=== PATIENT | female | born 1995 | race Caucasian/White ===

== ENCOUNTER 2019-06-30 18:25 | Observation (INO) | payer OTHER, SELFPAY ==
[2019-06-30 18:40] VITALS: TEMP 37.4
[2019-06-30 18:42] VITALS: BP 122/74; PULSE 85
[2019-06-30 19:12] LABS: Add Urine Microscopic? NO; Appearance Urine Clear (Clear); Bilirubin Urine Negative (Negative); Blood Urine Negative (Negative); Color Urine Straw (Yellow); Glucose Urine UA Negative (Negative); Ketones Urine Negative (Negative); Leukocyte Esterase Ur Negative LEU/UL (Negative); Nitrate Urine Negative (Negative); Protein Urine Negative (Negative); Urobilinogen Urine Negative mg/dL (<2.0)
[2019-06-30] MEDS: CYCLOBENZAPRINE HCL 10 MG TABLET PO (19:39)
[2019-06-30 19:50] VITALS: TEMP 37.3
--- NOTE | 2019-06-30 20:11 | PC.NURSE ---
Addendum entered by Latanya Rock RN 06/30/19 20:18: 1840 Original Note: Pt here stating she has been having pain and pressure on her lower abdomen for a week. States it worsened this evening. Rates pain 7-8 earlier in the week and 9-10 now. Pt states legs sometimes go numb with pain. States when she straightens her legs the pain comes and goes, when her legs are bent either sitting up or on her side with her legs up she feels better and does not have the pain. When Pt started having the pain abdomen palpated and was soft. Pt stated it was on her lower left side at that time. Pt points very low on her side. States it is slightly more tender to the touch. States it is sometimes on the right side and sometimes on the left side. When laying on her side pt is comfortable. States she is unsure when her last bowel movement was that it may have been a day or two. Family states pt has not been eating much or drinking much water. Denies vomiting, diarrhea, or fever.
--- NOTE | 2019-07-14 08:00 | PM.OBTRLD ---
OB - Triage/Final Diagnosis Evaluation Laboratory results: Laboratory Tests 06/30/19 18:59 Urine Color Straw Urine Appearance Clear Urine pH 7.0 Ur Specific [place] 1.010 Urine Protein Negative Urine Glucose (UA) Negative Urine Ketones Negative Ur Blood (Man) Negative Urine Nitrate Negative Urine Bilirubin Negative Urine Urobilinogen Negative Leukocyte Esterase Rfl Negative Final Diagnosis (1) Abdominal pain: Code(s): R10.9 - Unspecified abdominal pain Status: Acute
== END 2019-06-30 20:00 | disposition home or self-care (01) ==
PROVIDERS: Advanced Practice Midwife; Admitting Provider Obstetrics & Gynecology; PCP Nurse Practitioner Family; Visit Provider Obstetrics & Gynecology
DX: O26.892 Other specified pregnancy related conditions, second trimester (principal); R10.9 Unspecified abdominal pain; Z3A.15 15 weeks gestation of pregnancy
CPT/HCPCS: 81003; A9270; G0378; G0379

== ENCOUNTER 2019-09-18 17:18 | Observation (INO) | payer OTHER, SELFPAY ==
[2019-09-18 17:34] VITALS: BP 115/66; PULSE 90
[2019-09-18 17:43] VITALS: BMI 41.2
[2019-09-18 17:45] VITALS: BP 109/57; PULSE 84
--- NOTE | 2019-09-18 17:45 | OBADM ---
This patient, Isabelle Coleman, admitted to the OB room 116 at 1718 per wheelchair for observation for c/o lower abdominal pain and urge to push. Patient/family oriented to hospital policies and general routines including ID bracelet, bed and alarms, visiting hours, pain management, procedures, bathroom and other care routines, personal items, smoking policy, room service/diet, and visiting hours. Patient/Family are encouraged to report perceived risks to care and to ask questions if they do not understand what they are told or what they should do.
[2019-09-18 18:00] VITALS: BP 110/60; PULSE 81; TEMP 36.6
[2019-09-18 18:17] VITALS: BP 105/62; PULSE 95
[2019-09-18 18:25] LABS: Add Urine Microscopic? YES; Amorphous Sediment Urine Few; Appearance Urine Clear (Clear); Bacteria Urine Trace /hpf; Bilirubin Urine Negative (Negative); Blood Urine Negative (Negative); Color Urine Yellow (Yellow); Glucose Urine UA Negative (Negative); Ketones Urine 1+ mg/dL (Negative); Leukocyte Esterase Ur Negative LEU/UL (Negative); Mucus Urine Few /lpf; Nitrate Urine Negative (Negative); Protein Urine Negative (Negative); RBC Urine 0-2 /hpf (0-2); Specific Grav Ur 1.015 (1.001-1.035); Squamous Epithelial Cell Urine Occasional /hpf (Few); Urobilinogen Urine Negative mg/dL (<2.0)
[2019-09-18 18:30] VITALS: BP 105/52; PULSE 82
[2019-09-18 18:45] VITALS: BP 104/63; PULSE 74
--- NOTE | 2019-09-23 07:35 | P.PNOB_ITS ---
OB - Triage/Final Diagnosis Evaluation Laboratory results: Laboratory Tests 09/18/19 18:11 Urine Color Yellow Urine Appearance Clear Urine pH 6.0 Ur Specific [place] 1.015 Urine Protein Negative Urine Glucose (UA) Negative Urine Ketones 1+ H Ur Blood (Man) Negative Urine Nitrate Negative Urine Bilirubin Negative Urine Urobilinogen Negative Leukocyte Esterase Rfl Negative Urine RBC 0-2 Urine WBC 4-6 H Ur Squamous Epith Cells Occasional Amorphous Sediment Few H Urine Bacteria Trace Urine Mucus Few H Final Diagnosis (1) Abdominal pain affecting : Code(s): O26.899 - Other specified related conditions, unspecified trimester; R10.9 - Unspecified abdominal pain Status: Acute
== END 2019-09-18 19:12 | disposition home or self-care (01) ==
PROVIDERS: Admitting Provider Obstetrics & Gynecology; PCP Nurse Practitioner Family; Visit Provider Obstetrics & Gynecology
DX: O26.892 Other specified pregnancy related conditions, second trimester (principal); R10.9 Unspecified abdominal pain; Z3A.27 27 weeks gestation of pregnancy
CPT/HCPCS: 81001; G0378; G0379

== ENCOUNTER 2019-10-10 20:47 | Observation (INO) | payer OTHER, SELFPAY ==
--- NOTE | 2019-10-10 20:47 | OBADM ---
This patient, Isabelle Coleman, admitted to the OB room OB Post 117 for observation. Patient/family oriented to hospital policies and general routines including ID bracelet, bed and alarms, visiting hours, pain management, procedures, bathroom and other care routines, personal items, smoking policy, room service/diet, and visiting hours. Patient/Family are encouraged to report perceived risks to care and to ask questions if they do not understand what they are told or what they should do.
[2019-10-10 21:01] VITALS: BP 111/70; PULSE 105
[2019-10-10 21:55] VITALS: BMI 40.8
[2019-10-10 22:00] VITALS: BP 113/63; PULSE 85
--- NOTE | 2019-10-16 07:25 | PM.OBTRLD ---
OB - Triage/Final Diagnosis Final Diagnosis (1) contractions: Code(s): O47.9 - False labor, unspecified Status: Acute
== END 2019-10-10 22:25 | disposition home or self-care (01) ==
PROVIDERS: Admitting Provider Obstetrics & Gynecology; PCP Nurse Practitioner Family; Visit Provider Obstetrics & Gynecology
DX: O47.03 False labor before 37 completed weeks of gestation, third trimester (principal); Z3A.30 30 weeks gestation of pregnancy
CPT/HCPCS: G0378; G0379

== ENCOUNTER 2019-10-21 19:32 | Outpatient (RCR) | payer OTHER, SELFPAY ==
[2019-10-03 12:40] VITALS: BP 123/71; PULSE 89
[2019-10-21 20:00] VITALS: BP 99/47; PULSE 91
== END 2019-11-27 08:40 | disposition home or self-care (01) ==
LOC: ANHOBOP 19:32
PROVIDERS: PCP Nurse Practitioner Family; Visit Provider Obstetrics & Gynecology
DX: O36.8130 Decreased fetal movements, third trimester, not applicable or unspecified (principal); Z3A.29 29 weeks gestation of pregnancy; Z3A.31 31 weeks gestation of pregnancy
CPT/HCPCS: 59025

== ENCOUNTER 2019-11-21 15:07 | Inpatient (IN) | payer OTHER, SELFPAY ==
[2019-11-21] VITALS (80 sets, daily range): BP systolic 102–141; BP diastolic 42–87; PULSE 48–113; RESP 16–18; TEMP 36.1–36.9; O2SAT 93–100; BMI 41.6
--- NOTE | 2019-11-21 15:19 | LDADM ---
This patient, Isabelle Coleman, was admitted to Labor/Delivery/Recovery 120 on 11/21/19 at 15:07. Plans for labor, pain management and were discussed with patient. Patient/family oriented to hospital policies and general routines including ID bracelet, bed and alarms, visiting hours, pain management, procedures, bathroom and other care routines, personal items, smoking policy, room service/diet and guest tray routines, security routines, and visiting hours. Patient/Family are encouraged to report perceived risks to care and to ask questions if they do not understand what they are told or what they should do. See OBIX for further documentation.
--- NOTE | 2019-11-21 15:31 | WPDANESEPPF ---
Anes - Initial Pre Proc Eval Procedure: Operation Date: 11/27/19 09:00 Proposed Procedures p Repeat Section wiht Bilateral Tubal Cautery - Janis Nuno MD Date/Time: 11/21/19 15:31 Surgeon: Janis Nuno MD Pre Op Diagnosis: C/S Patient Data Age: 24 Gender: F Height: 5 ft 1 in Weight: 100 kg Allergies Allergy/AdvReac Type Severity Reaction Status Date / Time No Known Allergies Allergy Verified 09/18/19 17:42 Home Medications Medication Instructions Recorded Confirmed Type Flovent HFA 2 puff INHALATION Q2-4H PRN 09/18/19 09/18/19 History albuterol sulfate 2 puff INHALATION QID PRN 09/18/19 09/18/19 History metoclopramide HCl 10 mg PO Q6H PRN 09/18/19 09/18/19 History pantoprazole 40 mg PO DAILY 09/18/19 09/18/19 History Patient hx anesthesia problems: none Family hx anesthesia problems: none PMFSH Past Medical History Medical History Asthma GERD (gastroesophageal reflux disease) History of ovarian cyst Surgical History Surgical History History of removal of ovarian cyst Family History Family History Mother Diabetes mellitus Son Aniridia Social History Social History Smoking status: Never smoker Second hand tobacco smoke exposure: Yes Substance use: never Gender identity (if verbalized by the patient): Female Spiritual care concerns: No Anes - Eval Final PreProcedure Day of Procedure 11/21/19 15:31 Patient weight: morbidly obese Heart: regular rate and rhythm Lungs: clear to auscultation Airway: Mallampati scale class II Neurological: alert and oriented Last oral intake: >/= 8 hours ASA classification: III Emergent: yes Anesthetic plan: proceed Anesthesia type and monitoring: regional spinal and standard monitoring Informed Consent: The patient's anesthetic plan and its attendant risks and benefits were discussed with the patient/family/POA. Questions were solicited and answers provided to the satisfaction of the patient/family/POA.
[2019-11-21 15:33] LABS: Basophils Percent Auto 0.2 % (0.2-1.2); Eosinophils Absolute Auto 0.1 K/mm3 (0-0.3); Eosinophils Percent Auto 0.8 % (0-4.4); Hematocrit 33.6 % (37.0-47.0); Hemoglobin 11.6 g/dL (12.0-15.0); Immature Granulocyte Absolute 0.06 K/mm3 (0.00-0.031); Immature Granulocyte Percent A 0.6 % (0-0.5); Mean Corpuscular HGB Conc 34.5 g/dl (32-36); Mean Corpuscular Hemoglobin 32.3 pg (26-34); Mean Corpuscular Volume 93.6 fl (80-100); Mean Platelet Volume 9.7 fl (7.4-10.4); Monocytes Absolute Auto 0.9 K/mm3 (0.1-0.6); Monocytes Percent Auto 9.4 % (2.6-8.5); Neutrophils Absolute Auto 6.3 K/mm3 (1.3-6.7); Platelet Count Result 217 k/mm3 (150-375); Red Blood Count 3.59 M/mm3 (4.2-5.4); Red Cell Distribution Width 11.9 % (11.5-14.5); White Blood Count 9.6 K/mm3 (4.5-10.0)
--- NOTE | 2019-11-21 15:41 | WPDOBADMIT ---
Obstetrics - Admit Note Admission Note: record reviewed. No pertinent additions to the history and/or any subsequent changes in the physical findings that are not consistent with the expected course of the were found. Additions to the history and/or subsequent changes in the physical findings follow. at 36+1 with d-di twins was found to have new onset IUGR and elevated dopplers of both babies at office visit today. She agrees to proceed with emergent C/S due to u/S findings and baby A is breech and B transverse. GBS negative
--- NOTE | 2019-11-21 17:00 | PM.OP ---
Procedure Note - Brief Procedure Note - Brief Date of procedure: 11/21/19 Pre-op diagnosis: C/S Di-di twinse with IUGR and abnormal dopplers of both, malpresentation of both, desires sterilization Post-op diagnosis: same Procedure performed: Primary LTCS + BTL Anesthesia: spinal Surgeon: Janis Nuno MD Estimated blood loss (mL): 645 Drains: Yes (Matt) Packing: No Pathology: yes Complications: No immediate complications Condition: stable Disposition: floor Findings: Baby A- female, Apgars 7/8, 4# 11oz, wanda breech; Baby B - female, Apgars 7/8, 4# 6oz, transverse (delivered as wanda breech); normal uters, tubes, ovaries
--- NOTE | 2019-11-21 17:36 | HP_ITS ---
DATE OF SERVICE: 11/21/2019 HISTORY OF PRESENT ILLNESS: The patient is a 25-year-old G2, P1-0-0-1 at 36 weeks and 1 day with dichorionic diamniotic twin gestation, who was in the office today for a routine visit and ultrasound, and both of her fetuses have developed IUGR with increased Dopplers of the umbilical artery, and since her last growth ultrasound, baby A is breech and baby B is transversed. So she was recommended to proceed with emergent . She is feeling normal movement and occasional contractions. No vaginal bleeding and no leakage of fluid. MEDICAL HISTORY: Acid reflux and asthma. CURRENT MEDICATIONS: Flovent, pantoprazole, and vitamin. ALLERGIES: SHE IS ALLERGIC TO HYDROCODONE. SURGICAL HISTORY: Diagnostic laparoscopy with right ovarian cystectomy, D and C hysteroscopy, and endometrial polypectomy. OB HISTORY: She had 1 full-term vaginal delivery complicated by gestational hypertension. SOCIAL HISTORY: She smokes about 5 cigarettes a day. Denies alcohol or drug use. C[employer] LAB[employer]ER HISTORY: Negative for abnormal Pap or STD. REVIEW OF SYSTEMS: Negative. PHYSICAL EXAMINATION: VITAL SIGNS: Her weight is 225, blood pressure 109/73. GENERAL: No apparent distress. HEART: Regular rate and rhythm. LUNGS: Clear to auscultation. ABDOMEN: Gravid, soft, nontender, nondistended. EXTREMITIES: Nontender with 2+ edema bilaterally. IMAGING DATA: Ultrasound today shows baby A in breech presentation on maternal left, weighing 4 pounds 9 ounces, which is 2, the 2nd percentile and umbilical artery Doppler of 3.4. Baby B has an estimated weight of 4-pound 7-ounce which is 1.3 percentile. This baby is in transverse lie with the head to maternal right and the Doppler of that umbilical artery is between 3.1 and 4.0. ASSESSMENT/PLAN: 1. G2, P1, at 36 weeks and 1 day with dichorionic diamniotic twins with new onset of intrauterine growth restriction of both fetuses and both also have elevated umbilical artery Dopplers. This is an indication for delivery. She agreed to proceed straight to Labor and delivery for due to presentation of baby A. 2. Desire sterilization. She had expressed the desire for sterilization throughout her and did sign consent form on August 28, 2019, so we will plan to tie her tubes along with her . 3. status is guarded and an indication for delivery. 4. Group B streptococcus is negative. D I MT: Radha
[2019-11-21] MEDS: MORPHINE SULFATE 2 MG/ML INJ 3 MG IV PUSH (17:41)
[2019-11-21] MEDS: OXYTOCIN 30 UNITS/NS 500 ML 30 UNITS/500 ML BAG 125 UNITS IV CONT (17:42)
--- NOTE | 2019-11-21 17:56 | OP_ITS ---
DATE OF PROCEDURE: 11/21/2019 PREOPERATIVE DIAGNOSIS: Intrauterine diamniotic dichorionic twin with IUGR of both fetuses, abnormal umbilical artery Dopplers of both fetuses, malpresentation of both fetuses and desires sterilization. POSTOPERATIVE DIAGNOSES: Intrauterine diamniotic dichorionic twin with IUGR of both fetuses, abnormal umbilical artery Dopplers of both fetuses, malpresentation of both fetuses and desires sterilization. PROCEDURE PERFORMED: Primary low-transverse section and bilateral tubal ligation. ANESTHESIA: Spinal. ESTIMATED BLOOD LOSS: 645 mL. COMPLICATIONS: None. FINDINGS: Baby A, wanda breech presentation female. Apgars 7 and 8. Weight 4 pounds 11 ounces. Baby B, female transverse presentation initially, but delivered as wanda breech. Apgars 7 and 8. Weight 4 pounds 6 ounces. Normal uterus, tubes, and ovaries. INDICATIONS: A 24-year-old, G2, P1-0-0-1 at 36 weeks and 1 day gestation, came to the office for routine OB visit and ultrasound, and was found to have new onset of IUGR as well as abnormal Dopplers of both fetuses and still malpresentation of both, so she was recommended to proceed with urgent delivery via due to malpresentation. She had expressed a desire throughout her as well as the continued desire today for sterilization and had signed consent for tubal ligation on August 28, 2019. DESCRIPTION OF PROCEDURE: She was taken to the operating room where spinal anesthesia was obtained and found to be adequate. She was prepared and draped in the normal sterile fashion in the dorsal supine position with a leftward tilt. A Pfannenstiel skin incision was made with a scalpel and extended to the underlying layer of fascia with the scalpel. The fascia was incised in the midline with a scalpel and extended laterally with the Hill scissors. The underlying rectus muscles were dissected off bluntly and sharply. The peritoneum was entered sharply and extended inferiorly and superiorly with good visualization of the bladder. The bladder blade was inserted. The lower uterine segment was incised in a transverse fashion with the scalpel. The incision was digitally stretched in the cephalocaudad direction. Baby A's membranes were ruptured with clear fluid noted. The hips were at the incision. Gentle traction was placed on the hips until the level of the shoulders were delivered. The left arm, which was anterior was flexed across the chest and brought easily through the incision. The infant was turned 180 degrees. The other arm was then flexed and brought easily through the incision. The head was flexed and delivered easily. The cord was clamped x2 and cut. The infant was passed to the waiting nurse. Baby B's membranes were still intact, so palpation was done to see what parts were facing where and baby was transverse, but the hips were brought down further toward the incision, and then the membranes were ruptured with clear fluid noted. The same maneuvers were used to deliver baby B. The cord was clamped x2 and cut. The infant was passed to the awaiting nurse. Cord gas and cord blood were obtained from both placentas. The placentas were then delivered by gentle traction on the cord. The uterus was exteriorized and cleared of all clots and debris. The uterine incision was closed using 0 Vicryl in a running locked fashion. Attention was then turned to the right fallopian tube, which was grasped with a Burton clamp. A defect was made in the mesosalpinx with the Bovie cautery. Two free ties of 0 plain gut were placed around the fallopian tube and the intervening segment of tube was excised. The same procedure was performed on the left fallopian tube. The uterine incision was reinspected and found to be hemo
[2019-11-22 03:48] VITALS: BP 93/55; PULSE 62; RESP 20; TEMP 36.8; O2SAT 98
[2019-11-22 04:32] VITALS: BP 96/58
[2019-11-22 04:49] LABS: Basophils Absolute Auto 0.1 K/mm3 (0.0-0.1); Basophils Percent Auto 0.4 % (0.2-1.2); Eosinophils Absolute Auto 0.1 K/mm3 (0-0.3); Eosinophils Percent Auto 0.7 % (0-4.4); Hematocrit 28.4 % (37.0-47.0); Hemoglobin 9.7 g/dL (12.0-15.0); Immature Granulocyte Absolute 0.07 K/mm3 (0.00-0.031); Immature Granulocyte Percent A 0.5 % (0-0.5); Lymphocytes Absolute Auto 2.56 K/mm3 (0.9-3.2); Lymphocytes Percent Auto 19.8 % (18.3-44.2); Mean Corpuscular HGB Conc 34.2 g/dl (32-36); Mean Corpuscular Hemoglobin 32.3 pg (26-34); Mean Corpuscular Volume 94.7 fl (80-100); Mean Platelet Volume 10.1 fl (7.4-10.4); Monocytes Absolute Auto 1.3 K/mm3 (0.1-0.6); Monocytes Percent Auto 10.4 % (2.6-8.5); Neutrophils Absolute Auto 8.8 K/mm3 (1.3-6.7); Neutrophils Percent Auto 68.2 % (45.5-73.1); Platelet Count Result 199 k/mm3 (150-375); Red Cell Distribution Width 11.9 % (11.5-14.5); White Blood Count 12.9 K/mm3 (4.5-10.0)
[2019-11-22 08:00] VITALS: BP 121/68; PULSE 65; RESP 18; TEMP 36.9; O2SAT 95
--- NOTE | 2019-11-22 08:10 | WPDANLDPN2 ---
Anes-Prog Note L&D Date/Time: 11/22/19 08:10 Comfortable throughout: section Neuraxial method: spinal Epidural/Spinal procedure site: clean & non-tender Neuro status: Neuro function grossly intact. Cardiovascular status: normal Respiratory status: normal Airway patency: baseline Mental status: baseline Post-Op hydration status: normal Vital Signs: Last Vital Signs Temp 36.8 C 11/22/19 03:48 Pulse 62 11/22/19 03:48 Resp 20 11/22/19 03:48 BP 96/58 L 11/22/19 04:32 Pulse Ox 98 11/22/19 03:48 I/O: Intake & Output 11/21/19 11/22/19 11/22/19 23:59 07:59 15:59 Intake Total 750 Output Total 645 1500 Balance -645 -750 Post-procedural complaints: none Patient feedback: Patient satisfied with anesthetic care.
--- NOTE | 2019-11-22 08:11 | WPDANLDNPN2 ---
Anes-Prog Note L&D-Neuraxial Date/Time: 11/22/19 08:11 Neuraxial medications: intrathecal PF morphine Opiod-related complaints: none Patient feedback: Patient satisfied with post-operative pain management.
[2019-11-22] MEDS: POLYSACCHARIDE IRON COMPLEX 150 MG CAPSULE PO ×2 (08:53→17:27)
[2019-11-22] MEDS: DOCUSATE SODIUM 100 MG CAPSULE PO ×2 (08:53→17:27)
[2019-11-22] MEDS: MULTIVIT/MIN/PREN/FOL AC/IRON TABLET 1 TAB PO (08:53)
[2019-11-22] MEDS: PANTOPRAZOLE 40 MG TABLET PO (09:28)
[2019-11-22] MEDS: IBUPROFEN 600 MG TABLET PO ×3 (11:50→23:29)
[2019-11-22 12:00] VITALS: BP 112/70; PULSE 66; RESP 16; TEMP 37.1; O2SAT 97
--- NOTE | 2019-11-22 12:04 | PM.OBPNVD ---
OB - PN: Subj Subjective Date/time seen: 11/22/19 12:04 Patient comments: no complaints, pain well controlled, tolerating diet and flatus present OB - PN: Obj Data Labs CBC & Chem 7: 11/22/19 05:11 Labs: Laboratory Results - last 24 hr 11/21/19 11/21/19 11/22/19 15:27 15:27 05:11 WBC 9.6 12.9 H RBC 3.59 L 3.00 L Hgb 11.6 L 9.7 L Hct 33.6 L 28.4 L MCV 93.6 94.7 MCH 32.3 32.3 MCHC 34.5 34.2 RDW 11.9 11.9 Plt Count 217 199 MPV 9.7 10.1 Immature Gran % (Auto) 0.6 H 0.5 Neut % (Auto) 66.0 68.2 Lymph % (Auto) 23.0 19.8 [place] % (Auto) 9.4 H 10.4 H Eos % (Auto) 0.8 0.7 Baso % (Auto) 0.2 0.4 Lymph # (Auto) 2.20 2.56 [place] # (Auto) 0.9 H 1.3 H Eos # (Auto) 0.1 0.1 Baso # (Auto) 0.0 0.1 Abs Immat Gran (auto) 0.06 H 0.07 H Absolute Neuts (auto) 6.3 8.8 H Absolute Nucleated RBC 0.0 0.0 Nucleated RBC % 0.0 0.0 Blood Type A Positive Antibody Screen Negative OB - PN A/P Plan day: 1 Comments: Post Op LTCS - no problems, routine recovery Time Spent With Patient Time: Total time spent is greater than 50% in coordination of care (as documented) at patient's floor/unit and/or counseling patient: Exam Const: General: cooperative, healthy appearing, comfortable and no acute distress Resp: Auscultation: no crackles, no rales, no rhonchi and no wheezes Cardio: Rhythm: regular rhythm Heart sounds: no click and no murmurs GI: Inspection: non-distended Auscultation: normal bowel sounds Extrem: General: normal to inspection, no pedal edema and no calf tenderness
--- NOTE | 2019-11-22 12:55 | PC.NURSE ---
Pt left on her 4-6 hour pass to visit infants at [facility].
[2019-11-22 16:57] VITALS: BP 116/73; PULSE 81; RESP 16; TEMP 36.9; O2SAT 97
--- NOTE | 2019-11-22 17:47 | PC.NURSE ---
Returned from pass at 0489
[2019-11-22 18:31] VITALS: BP 102/52; PULSE 76; RESP 16; TEMP 36.6; O2SAT 98
[2019-11-23] MEDS: IBUPROFEN 600 MG TABLET PO ×2 (05:00→13:41)
[2019-11-23] MEDS: DOCUSATE SODIUM 100 MG CAPSULE PO (08:53)
[2019-11-23] MEDS: MULTIVIT/MIN/PREN/FOL AC/IRON TABLET 1 TAB PO (08:53)
[2019-11-23] MEDS: PANTOPRAZOLE 40 MG TABLET PO (08:53)
[2019-11-23] MEDS: POLYSACCHARIDE IRON COMPLEX 150 MG CAPSULE PO (08:53)
[2019-11-23 08:55] VITALS: BP 107/59; PULSE 68; RESP 16; TEMP 36.9; O2SAT 99
--- NOTE | 2019-11-23 12:49 | PM.OBPNVD ---
OB - PN: Subj Subjective Date/time seen: 11/23/19 12:49 Patient comments: no complaints, pain well controlled, incisional pain, tolerating diet and flatus present OB - PN: Obj Data Labs CBC & Chem 7: 11/22/19 05:11 OB - PN A/P Plan day: 2 Plan: routine care Comments: POD#2 LTCS - no problems, patient wants D/C, Time Spent With Patient Time: Total time spent is greater than 50% in coordination of care (as documented) at patient's floor/unit and/or counseling patient: Exam Const: General: comfortable, no acute distress and alert Resp: Effort & Inspection: normal respiratory effort Auscultation: no crackles, no rales and no rhonchi Cardio: Rate: regular rate Heart sounds: no click, no murmurs and no rubs GI: Inspection: non-distended GI Palp: No Tenderness to palpation present (GI) Auscultation: normal bowel sounds Other: Incision - CDI Extrem: General: normal to inspection, no pedal edema and no calf tenderness
--- NOTE | 2019-11-23 12:52 | PM.OBDSVD ---
DS: Discharge Diagnosis Discharge Diagnosis (1) Twin delivery by : Code(s): O30.009 - Twin , unspecified number of placenta and unspecified number of amniotic sacs, unspecified trimester Status: Acute (2) IUGR (intrauterine growth restriction): Status: Acute OB - DS: Summary OB Procedures : NST, Ultrasound and Other (twin gestation mamagement) OB Procedures Intrapartum: OB Procedures: : P.P. tubal ligation Peripartum Data Delivery Method: Section Procedures: Procedures Operation Date: 11/21/19 15:30 Actual Procedures Side Surgeon p Section Janis Nuno MD Operation Date: 11/27/19 09:00 <No data on this case meets the specified criteria> complications: none Status at Discharge Functional status at discharge: independent ambulation Time Spent with Patient Time attestation: Total time spent providing and/or coordinating discharge services: Time spent: Less than 30 minutes DS: Data Data Completed and Pending Pending studies at discharge: Pending at discharge 11/21/19 16:06 Surgical [PTH] Routine 11/21/19 16:15 Surgical [PTH] Routine Discharge Plan Discharge Discharging Clinician: Whitney Cm Patient Disposition: Home, Self-Care Activity: pelvic rest Diet: regular Wound Care Instructions: follow printed instructions Patient Instructions: Antibiotic Form Stand Alone Forms: General Discharge Information Follow-up/Referrals: Whitney Cm MD [Physician] - Discharge Medications: New hydrocodone-acetaminophen 5-325 mg tablet 1 - 2 tablet PO Q4H PRN (Reason: pain) Qty: 25 RF: 0 Continued pantoprazole 40 mg tablet,delayed release (DR/EC) 40 mg PO DAILY RF: 0 albuterol sulfate 90 mcg/actuation Hfa Aerosol Inhaler 2 puff INHALATION QID PRN (Reason: Dyspnea) RF: 0 Flovent HFA 110 mcg/actuation HFA aerosol inhaler 2 puff INHALATION Q2-4H PRN (Reason: Dyspnea) RF: 0 metoclopramide HCl 10 mg tablet 10 mg PO Q6H PRN (Reason: Nausea) RF: 0 Date of admission: 11/21/19 15:07 Primary Care Provider: DESMOND,SAMSON Admitting Provider: Janis Nuno Attending physician on admission: Janis Nuno
[2019-11-24 11:34] LABS: Rapid Plasma Reagin Non-Reactive (NonReactive)
[2019-11-25 07:45] VITALS: BP 112/80; PULSE 68; RESP 20; TEMP 37; O2SAT 98
== END 2019-11-23 14:36 | disposition home or self-care (01) | DRG 540 ==
LOC: ANHOB2 20:57 → ANHLDR 11-26 11:18 → ANHOB2 11-26 11:18
PROVIDERS: Admitting Provider Obstetrics & Gynecology; PCP Nurse Practitioner Family; Visit Provider Obstetrics & Gynecology
PROC: 10D00Z1 Extraction of Products of Conception, Low, Open Approach (ICD-10-PCS; CPT 59514; principal; 2019-11-21 15:30)
DX: O30.043 Twin pregnancy, dichorionic/diamniotic, third trimester (principal); O36.5931 Maternal care for other known or suspected poor fetal growth, third trimester, fetus 1; O36.5932 Maternal care for other known or suspected poor fetal growth, third trimester, fetus 2; O32.1XX1 Maternal care for breech presentation, fetus 1; O32.2XX2 Maternal care for transverse and oblique lie, fetus 2; O28.3 Abnormal ultrasonic finding on antenatal screening of mother; O99.214 Obesity complicating childbirth; E66.01 Morbid (severe) obesity due to excess calories; Z3A.36 36 weeks gestation of pregnancy; Z37.2 Twins, both liveborn; O99.334 Smoking (tobacco) complicating childbirth; F17.210 Nicotine dependence, cigarettes, uncomplicated; Z30.2 Encounter for sterilization
CPT/HCPCS: 36415; 85025; 86592; 86850; 86900; 86901; 88302; 88307; A9270; J0131; J1200; J2270; J2274; J2370; J2405; J2590; J7120

== ENCOUNTER 2020-05-17 19:00 | Emergency (ER) | payer OTHER, SELFPAY ==
--- NOTE | ~2020-05-17 | XR_ITS ---
EXAMINATION: XR foot RT min 3V DATE: 05/17/2020 19:27 INDICATION: Medial right foot pain TECHNIQUE: Dorsoplantar, two oblique and lateral views of the right foot were obtained. COMPARISON: 03/12/2018 FINDINGS: Bone alignment is normal. Again noted is a normal type II os naviculare. No fracture. Mild osteoarthr itis at the first metatarsophalangeal joint. IMPRESSION: 1. Mild osteoarthritis at the first metatarsophalangeal joint. Reviewed, dictated and finalized at location A. AW OPERATOR
[2020-05-17 19:02] VITALS: BP 140/73; PULSE 73; RESP 16; TEMP 36.2; O2SAT 99
--- NOTE | 2020-05-17 19:38 | ED.GENADULT ---
HPI - General Adult General Chief complaint: Extremity Injury, Lower Stated complaint: right foot pain Time Seen by Provider: 05/17/20 19:14 Source: patient Mode of arrival: ambulatory Limitations: no limitations History of Present Illness HPI narrative: Patient is a 25-year-old female who presents with several weeks duration of atraumatic right medial foot pain patient has seen primary care for this denies injury or trauma pain is localized to the medial aspect of the right midfoot. Patient has not taken anything for her symptoms presents in no distress denies radiation of pain radicular symptoms or paresthesias Related Data Home Medications Medication Instructions Recorded Confirmed Flovent HFA 2 puff INHALATION Q2-4H PRN 09/18/19 11/21/19 albuterol sulfate 2 puff INHALATION QID PRN 09/18/19 11/21/19 pantoprazole 40 mg PO PRN PRN 09/18/19 11/21/19 Allergies Allergy/AdvReac Type Severity Reaction Status Date / Time No Known Allergies Allergy Verified 03/08/20 08:48 Review of Systems Review of Systems: All systems reviewed & are unremarkable except as noted in HPI and below PMFSH Past Medical History Medical History Asthma GERD (gastroesophageal reflux disease) History of ovarian cyst Cyst removal 2016 Migraines Surgical History Surgical History H/O tubal ligation 2019 History of removal of ovarian cyst Family History Family History Mother Diabetes mellitus Cervical cancer Son Aniridia Social History Social History Years smoked: 7 Smoking status: Former smoker Tobacco type: cigarettes Second hand tobacco smoke exposure: Yes Alcohol intake: current Drinks per week: 2 Substance use: never Gender identity (if verbalized by the patient): Female Spiritual care concerns: No Exam Narrative: Exam Narrative: GENERAL: Well-appearing, well-nourished, and in no acute distress. HEAD: Normocephalic, atraumatic. EYES: PERRLA and EOMI. EXTREMITIES: Normal range of motion. No edema. Tenderness the medial aspect of the right midfoot no deformities noted remainder of foot and ankle nontender no deformity SKIN: Warm, dry, no rash. NEURO: No focal deficits. Alert and oriented x3. Neurovascularly intact. Capillary refill less than 2-second PSYCH: Normal mood and affect. Course Course Emergency Course: Patient in the room in no distress will be referred to podiatry for further evaluation Vital Signs Vital signs: Vital Signs Temperature 97.1 F L 05/17/20 19:02 Pulse Rate 73 05/17/20 19:02 Respiratory Rate 16 05/17/20 19:02 Blood Pressure 140/73 05/17/20 19:02 Pulse Oximetry 99 05/17/20 19:02 Temperature 97.1 F L 05/17/20 19:02 Pulse Rate 73 05/17/20 19:02 Respiratory Rate 16 05/17/20 19:02 Blood Pressure 140/73 05/17/20 19:02 Pulse Oximetry 99 05/17/20 19:02 Medical Decision Making MDM Narrative Medical decision making narrative: Patients injury or pain is consistent with musculoskeletal etiology. No signs of neurological or vascular compromise on exam. Compartments and tisues are soft without signs of compartment syndrome. Pain is felt appropriate for further evaluation on an outpatient basis. Vital Signs Vital Signs: Vital Signs Temperature 97.1 F L 05/17/20 19:02 Pulse Rate 73 05/17/20 19:02 Respiratory Rate 16 05/17/20 19:02 Blood Pressure 140/73 05/17/20 19:02 Pulse Oximetry 99 05/17/20 19:02 Temperature 97.1 F L 05/17/20 19:02 Pulse Rate 73 05/17/20 19:02 Respiratory Rate 16 05/17/20 19:02 Blood Pressure 140/73 05/17/20 19:02 Pulse Oximetry 99 05/17/20 19:02 Discharge Plan Discharge Clinical Impression: Acute pain of right foot Patient Disposition: Home, Self-Care C
--- NOTE | 2020-05-17 20:14 | PC.NURSE ---
Ap Wrap Applied Ap wrap applied to R foot. PMS intact prior to placement and post placement of AP wrap. Pt educated on use and how to check for PMS. Pt gave correct return demonstration.
[2020-05-17 20:26] VITALS: BP 122/79; PULSE 68; RESP 18; TEMP 36.6; O2SAT 99
== END 2020-05-17 20:27 | disposition home or self-care (01) ==
PROVIDERS: Emergency Provider Emergency Medicine; PCP Nurse Practitioner Family
DX: M79.671 Pain in right foot (principal); J45.909 Unspecified asthma, uncomplicated; K21.9 Gastro-esophageal reflux disease without esophagitis; Z87.891 Personal history of nicotine dependence
CPT/HCPCS: 73630; 99283

== ENCOUNTER 2021-01-29 16:37 | Emergency (ER) | payer OTHER, SELFPAY ==
[2021-01-29 16:45] VITALS: BP 131/65; PULSE 81; RESP 20; TEMP 35.8; O2SAT 98
--- NOTE | 2021-01-29 17:10 | ED.GENADULT ---
HPI - General Adult General Chief complaint: Unspecified Stated complaint: sore throat, swelling on left side Time Seen by Provider: 01/29/21 17:03 Source: patient Mode of arrival: ambulatory Limitations: no limitations History of Present Illness HPI narrative: Patient presents for evaluation of sore throat for the last 3 days. Symptoms are worse as of today. She now has pain in her left ear when she swallows. Denies any tinnitus or hearing loss. No fever, chills, nausea, vomiting, respiratory symptoms. No recent sick contacts. No history of Covid. Has not received COVID vaccination. She is not taking any medication for her symptoms. She currently smokes a few cigarettes per day. Related Data Home Medications Medication Instructions Recorded Confirmed Flovent HFA 2 puff INHALATION Q2-4H PRN 09/18/19 11/21/19 albuterol sulfate 2 puff INHALATION QID PRN 09/18/19 11/21/19 pantoprazole 40 mg PO PRN PRN 09/18/19 11/21/19 Allergies Allergy/AdvReac Type Severity Reaction Status Date / Time No Known Allergies Allergy Verified 03/08/20 08:48 Review of Systems Review of Systems: CONSTITUTIONAL: Denies fever, chills, or sweats. EYES: Denies visual changes, redness, or discharge. ENT: Reports sore throat and left-sided otalgia. Denies hearing loss or tinnitus. CARDIOVASCULAR: Denies chest pain, palpitations, or edema. RESPIRATORY: Denies cough or dyspnea. GASTROINTESTINAL: Denies abdominal pain, nausea, vomiting, or diarrhea. GENITOURINARY: Denies dysuria or hematuria. SKIN: Denies rash or itching. MUSCULOSKELETAL: Denies back pain, joint pain, or myalgia. NEUROLOGIC: Denies headache, numbness, dizziness, or weakness. PSYCHIATRIC: Denies anxiety or depression. [facility] Past Medical History Medical History Asthma GERD (gastroesophageal reflux disease) History of ovarian cyst Cyst removal 2016 Migraines Surgical History Surgical History H/O tubal ligation 2019 History of removal of ovarian cyst Family History Family History Mother Diabetes mellitus Cervical cancer Son Tessa Social History Social History Years smoked: 7 Smoking status: Former smoker Tobacco type: cigarettes Second hand tobacco smoke exposure: Yes Alcohol intake: current Drinks per week: 2 Substance use: never Gender identity (if verbalized by the patient): Female Spiritual care concerns: No Exam Narrative: GENERAL: Well-appearing, well-nourished, and in no acute distress. HEAD: Normocephalic, atraumatic. EYES: PERRLA and EOMI. ENT: Nares clear, no rhinorrhea or epistaxis. Mucous membranes moist. Bilateral tonsillar enlargement with white exudate on left.no uvular deviation. No asymmetry to suggest DIVISION SUPERVISOR. Bilateral TMs pearly quintero nonbulging NECK: Supple. No adenopathy or masses. No carotid bruits or JVD CHEST: Clear to auscultation. No respiratory distress. No wheezes rales or rhonchi HEART: Regular rate and rhythm. No murmur heard. Normal peripheral pulses. ABDOMEN: Soft, nontender, nondistended, normal active bowel sounds. EXTREMITIES: Normal range of motion. No edema. SKIN: Warm, dry, no rash. NEURO: No focal deficits. Alert and oriented x3. PSYCH: Normal mood and affect. Course Course Emergency Course: This a 25-year-old female who presented with complaints of sore throat left-sided otalgia. Strep was negative. [place] was negative. She has no asymmetry to suggest DIVISION SUPERVISOR and uvula is midline. Will treat with oral antibiotics. Advise close follow-up and return for worsening symptoms. Patient agreed with plan of care. Vital Signs Vital signs: Vital Signs Temperature 35.8 C L 01/29/21 16:45 Pulse Rate 81 01/29/21 16:45 Respiratory Rate 20 01/29/21 16:45 Blood
--- NOTE | 2021-01-29 19:22 | PC.NURSE ---
Assumed care of pt at this time. Pt alert, resting on stretcher. Updated pt about POC. Pt denies pain at this time.
[2021-01-29 19:27] VITALS: BP 135/75; PULSE 76; RESP 18; O2SAT 100
[2021-01-29 19:37] LABS: Monoscreen Negative (Negative); Negative Monotest Control Negative (Negative); Positive Monotest Control Positive (Positive)
--- NOTE | 2021-01-29 20:05 | PC.NURSE ---
Pt c/o 01/25 pain upon discharge. Pt states she did not tell this RN or physician because she felt like there was nothing we could do. EDP notified. new orders on chart.
--- NOTE | 2021-01-29 20:29 | PC.NURSE ---
Per [facility] EDP, do not give PO tablet dexamethasone. Give 800mg ibuprofen PO and 10mg Dexamethasone Inj PO.
[2021-01-29] MEDS: IBUPROFEN 400 MG TABLET 800 MG PO (20:41)
== END 2021-01-29 21:31 | disposition home or self-care (01) ==
PROVIDERS: Emergency Provider Nurse Practitioner
DX: J02.9 Acute pharyngitis, unspecified (principal); J45.909 Unspecified asthma, uncomplicated; K21.9 Gastro-esophageal reflux disease without esophagitis; Z87.891 Personal history of nicotine dependence
CPT/HCPCS: 36415; 86308; 87081; 87880; 99283; A9270; J1100

== ENCOUNTER 2021-05-23 08:10 | Emergency (ER) | payer OTHER, SELFPAY ==
[2021-05-23 08:19] VITALS: BP 113/66; PULSE 66; RESP 18; TEMP 36.9; O2SAT 99
--- NOTE | 2021-05-23 08:23 | ED.SKABFB ---
HPI - Skin/Abscess/Foreign Bdy General Chief complaint: Extremity Injury, Lower Stated complaint: Right finger Pain Time Seen by Provider: 05/23/21 08:24 Source: patient and RN notes reviewed History of Present Illness HPI narrative: 26-year-old female presents with redness and swelling around the fingernail of the right ring finger. Stated it started 2 to 3 days ago. She is a nail biter. Related Data Home Medications Medication Instructions Recorded Confirmed Flovent HFA 2 puff INHALATION Q2-4H PRN 09/18/19 11/21/19 albuterol sulfate 2 puff INHALATION QID PRN 09/18/19 11/21/19 pantoprazole 40 mg PO PRN PRN 09/18/19 11/21/19 Allergies Allergy/AdvReac Type Severity Reaction Status Date / Time No Known Allergies Allergy Verified 03/08/20 08:48 Review of Systems Review of Systems: All systems reviewed & are unremarkable except as noted in HPI and below Constitutional: Constitutional: Reports no additional constitutional complaints, Denies chills and Denies fever(s) Eyes: Eyes: Reports no additional eye complaints ENT: Reports system reviewed and no additional complaints, except as documented Cardiovascular: Cardiovascular: Reports no additional cardiovascular complaints Respiratory: Respiratory: Reports no additional respiratory complaints Musculoskeletal: Musculoskeletal: Reports no additional musculoskeletal complaints Integumentary/Breasts: Skin/Breast: Reports as per HPI Comments: Redness, swelling around nail, right ring finger Neurologic: Reports system reviewed and no additional complaints, except as documented Psychiatric: Psychiatric: Reports no additional psychiatric complaints Allergic/Immunologic: Allergic/Immunologic: Reports no additional allergic/immunologic complaints [facility] Past Medical History Medical History Asthma GERD (gastroesophageal reflux disease) History of ovarian cyst Cyst removal 2016 Migraines Surgical History Surgical History H/O tubal ligation 2019 History of removal of ovarian cyst Family History Family History Mother Diabetes mellitus Cervical cancer Son Aniridia Social History Social History Years smoked: 7 Smoking status: Former smoker Tobacco type: cigarettes Second hand tobacco smoke exposure: Yes Alcohol intake: current Drinks per week: 2 Substance use: never Gender identity (if verbalized by the patient): Female Spiritual care concerns: No Comments At the time of my signature, I reviewed and agree with the nursing past medical, surgical, social, and family history. There is no relevant family history pertinent to the patient complaint. Exam Const: General: healthy appearing, no acute distress and alert Nutritional Appearance: well nourished and obese Orientation/consciousness: patient oriented x3 Limitations: no limitations HENMT: Head: normal to inspection Eyes: Pupils: Equal, round and reactive pupils present Neck: Neck: normal visual inspection, no lymphadenopathy and no meningeal signs Chest: Chest palpation & inspection: normal inspection of the chest Resp: Effort & Inspection: normal respiratory effort Cardio: Rate: regular rate Back/Spine/Pelvis: Back: no CVA tenderness Skin: General skin exam: normal color Other: Redness, swelling and tenderness with increased warmth Neuro: General: patient oriented x3, moves all extremities, no meningeal signs and no focal motor deficits Speech: normal speech Gait exam (Neuro): Normal gait present Extrem: General: normal to inspection Psych: Appearance: grossly normal and well kempt Mental Status: mental status grossly normal Affect: normal affect Attitude: cooperative Thought content: Yes Normal thought content present Course Course Emergency Course: Discharge in
== END 2021-05-23 09:02 | disposition home or self-care (01) ==
PROVIDERS: Emergency Provider Nurse Practitioner
DX: L03.011 Cellulitis of right finger (principal); Z87.891 Personal history of nicotine dependence
CPT/HCPCS: 10060; 87070; 87077; 87186; 87205; 99212; G0463

== ENCOUNTER 2023-06-26 09:00 | Outpatient (CLI) | payer OTHER, SELFPAY ==
--- NOTE | ~2023-06-26 | MR_ITS ---
MRI of the brain Clinical History: Migraine Technique: Axial and sagittal T1-weighted images were acquired. These were followed by axial T2-weigh estephania, diffusion weighted, gradient, and FLAIR images. Findings: No abnormal signal seen in the brain parenchyma. No acute infarct, intracranial hemorrhage, or mass lesion. Ventricles and subarachnoid spaces are unremarkable. Orbits are unremarkable. Paranasal sinuses and m astoid air cells are clear, aside from mild left maxillary sinus disease. Major intracranial flow voi ds are intact. Sagittal midline structures are intact. IMPRESSION: Left maxillary sinus disease, otherwise unremarkable exam. Reviewed, dictated and finalized at location [facility]
--- NOTE | ~2023-06-26 | US_ITS ---
Pelvic ultrasound. Clinical History: Menorrhagia Technique: Realtime transabdominal and transvaginal scanning of the pelvis was performed. Color flow Doppler and Doppler spectral analysis were performed. Findings: The uterus is anteverted. The endometrial stripe has a thickness of 6 mm. No focal mass is identified. The right ovary measures 2.8 x 1.6 x 1.4 cm. No significant right ovarian or adnexal mass is seen. The left ovary measures 1.8 x 1.1 x 1.9 cm. There is an apparent small left adnexal paraovarian cyst. . Vascular flow present in both ovaries on Doppler spectral analysis. There is no evidence of free fluid in the cul de sac. Impression: Probable small left paraovarian cyst. No other significant findings. Reviewed, dictated and finalized at [facility]. IC FINISHER Impression: Probable small left paraovarian cyst. No other significant findings.
== END 2023-06-26 09:01 | disposition home or self-care (01) ==
LOC: ANHIMG 09:02
PROVIDERS: PCP Physician Assistant; Visit Provider Physician Assistant
DX: N92.0 Excessive and frequent menstruation with regular cycle (principal); G43.909 Migraine, unspecified, not intractable, without status migrainosus; J32.0 Chronic maxillary sinusitis
CPT/HCPCS: 70551; 76830; 76856

== ENCOUNTER 2023-08-08 13:30 | Outpatient (RCR) | payer OTHER, SELFPAY ==
--- NOTE | 2023-06-05 09:17 | OPREHPOC ---
Outpatient Therapy Plan of Care This is a Multidisciplinary Plan of Care that may contain components documented by all disciplines (PT, OT, and ST.) PT Problem 1 PT Problem #1 Knowledge Deficit PT Goal 1 Goal 1. Patient will perform independent HEP Target Visit 9 PT Problem 2 PT Problem #2 Pain PT Goal 1 Goal 1. Patient able to do all normal ADL's with pain no higher than 2/10 Target Visit 9 PT Problem 3 PT Problem #3 Impaired Range of Motion PT Goal 1 Goal 1. Painfree lumbar ROM to allow for return to work Target Visit 9 PT Problem 4 PT Problem #4 Impaired Strength PT Goal 1 Goal 1. Improve all LE MMT to 5/5 in order to perform home and work activities Target Visit 9
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
--- NOTE | 2023-06-05 10:12 | OPREHPOC ---
Outpatient Therapy Plan of Care This is a Multidisciplinary Plan of Care that may contain components documented by all disciplines (PT, OT, and ST.) PT Problem 1 PT Problem #1 Knowledge Deficit PT Goal 1 Goal 1. Patient will perform independent HEP Target Visit 9 PT Problem 2 PT Problem #2 Pain PT Goal 1 Goal 1. Patient able to do all normal ADL's with pain no higher than 2/10 Target Visit 9 PT Problem 3 PT Problem #3 Impaired Range of Motion PT Goal 1 Goal 1. Painfree lumbar ROM to allow for return to work Target Visit 9 PT Problem 4 PT Problem #4 Impaired Strength PT Goal 1 Goal 1. Improve all LE MMT to 5/5 in order to perform home and work activities Target Visit 9 OT Problem 1 OT Problem #1 Knowledge Deficit OT Goal 1 Goal 1. Patient to be independent with instructed materials. Target Visit 8 OT Problem 2 OT Problem #2 Impaired Strength OT Goal 1 Goal 1. Increase (R) Hand Glass Cutter strength to 50 lbs. 2. Increase (R) wrist strength as demonstrated by being able to lift 25 lb. box from floor height to table height. Target Visit 8 OT Problem 3 OT Problem #3 Pain OT Goal 1 Goal 1. Patient to report pain reduced to 2/10 with ADLs. Target Visit 8
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
--- NOTE | 2023-07-04 10:41 | OPREHPOC ---
Outpatient Therapy Plan of Care This is a Multidisciplinary Plan of Care that may contain components documented by all disciplines (PT, OT, and ST.) PT Problem 1 PT Problem #1 Knowledge Deficit PT Goal 1 Goal 1. Patient will perform independent HEP Target Visit 9 PT Problem 2 PT Problem #2 Pain PT Goal 1 Goal 1. Patient able to do all normal ADL's with pain no higher than 2/10 Target Visit 9 PT Problem 3 PT Problem #3 Impaired Range of Motion PT Goal 1 Goal 1. Painfree lumbar ROM to allow for return to work Target Visit 9 PT Problem 4 PT Problem #4 Impaired Strength PT Goal 1 Goal 1. Improve all LE MMT to 5/5 in order to perform home and work activities Target Visit 9 OT Problem 1 OT Problem #1 Knowledge Deficit OT Goal 1 Goal 1. Patient to be independent with instructed materials. ---OT POC UPDATE 07/04/23--- 1. Met, continue as HEP is progressed Target Visit 17 OT Problem 2 OT Problem #2 Impaired Strength OT Goal 1 Goal 1. Increase (R) Compliance Professional strength to 50 lbs. 2. Increase (R) wrist strength as demonstrated by being able to lift 25 lb. box from floor height to table height. ---OT POC UPDATE 07/04/23--- 1. Progressing, continue 2. Progressed to 10 lbs., continue Target Visit 17 OT Problem 3 OT Problem #3 Pain OT Goal 1 Goal 1. Patient to report pain reduced to 2/10 with ADLs. ---OT POC UPDATE 07/04/23--- 1. Intermittently met, continue to monitor and treat pain Target Visit 17
--- NOTE | 2023-07-04 10:57 | OPREHPOC ---
Outpatient Therapy Plan of Care This is a Multidisciplinary Plan of Care that may contain components documented by all disciplines (PT, OT, and ST.) PT Problem 1 PT Problem #1 Knowledge Deficit PT Goal 1 Goal 1. Patient will perform independent HEP Target Visit 9 Progress Met PT Problem 2 PT Problem #2 Pain PT Goal 1 Goal 1. Patient able to do all normal ADL's with pain no higher than 2/10 Target Visit 9 Progress Met PT Problem 3 PT Problem #3 Impaired Range of Motion PT Goal 1 Goal 1. Painfree lumbar ROM to allow for return to work Target Visit 9 Progress Met PT Problem 4 PT Problem #4 Impaired Strength PT Goal 1 Goal 1. Improve all LE MMT to 5/5 in order to perform home and work activities Target Visit 9 Progress Met OT Problem 1 OT Problem #1 Knowledge Deficit OT Goal 1 Goal 1. Patient to be independent with instructed materials. ---OT POC UPDATE 07/04/23--- 1. Met, continue as HEP is progressed Target Visit 17 OT Problem 2 OT Problem #2 Impaired Strength OT Goal 1 Goal 1. Increase (R) Magnetic Tape Winder strength to 50 lbs. 2. Increase (R) wrist strength as demonstrated by being able to lift 25 lb. box from floor height to table height. ---OT POC UPDATE 07/04/23--- 1. Progressing, continue 2. Progressed to 10 lbs., continue Target Visit 17 OT Problem 3 OT Problem #3 Pain OT Goal 1 Goal 1. Patient to report pain reduced to 2/10 with ADLs. ---OT POC UPDATE 07/04/23--- 1. Intermittently met, continue to monitor and treat pain Target Visit 17
--- NOTE | 2023-07-04 10:57 | PTOPDC ---
Assessment and note entered by Nneka Hamlin DPT Evaluation Information Assessment Status Discharge Subjective Information No back pain in the last week. Reports her back has not been limiting her ability to perform any ADL's. Does not yet have a return to work date due to pending hand issues and attempting to get accommodations. Reported Pain Level Pain Score 0: Self Report Pain Score 2: Self Report Additional Pain Score Comments Patient reports she is consistently at 1-2/10. The pain can get to 0/10 if she's resting/not using her hand. Reports the cold increases her pain. She used her hand the other day lifting/moving some boxes at home and the pain increased to 5/10. Assessment PT Clinical Summary The patient has made excellent progress in therapy and reports no back pain in the last week or limitations with ADL's. She demonstrates improved LE and core strength, no tenderness to palpation, and improved gait speed. Due to her progress, plan for discharge this date. She has been educated to continue HEP to maintain progress made in therapy . Oswestry score 2% disability. Plan of Care PT Services Indicated No
--- NOTE | 2023-07-04 11:00 | PTOPDC ---
Assessment and note entered by Nneka Hamlin DPT Evaluation Information Assessment Status Discharge Subjective Information No back pain in the last week. Reports her back has not been limiting her ability to perform any ADL's. Does not yet have a return to work date due to pending hand issues and attempting to get accommodations. Reported Pain Level Pain Score 0: Self Report Assessment PT Clinical Summary The patient has made excellent progress in therapy and reports no back pain in the last week or limitations with ADL's. She demonstrates improved LE and core strength, no tenderness to palpation, and improved gait speed. Due to her progress, plan for discharge this date. She has been educated to continue HEP to maintain progress made in therapy . Oswestry score 2% disability. Plan of Care PT Services Indicated No
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
--- NOTE | 2023-08-15 08:06 | PCOTNOTE ---
Patient called after seeing the hand surgeon. She reports that she is getting scheduled for an MRI of the finger. Therapy is on HOLD for now. Informed her that we will need new orders to continue therapy.
--- NOTE | 2023-08-28 08:01 | OTOPDC ---
Assessment and note entered by Jonathan Payton, OTR/L, CHT Discharge Notification OT Clinical Summary Patient called to state she is going to have an MRI of the hand and that therapy is on hold. We are going to discharge at this time and await new therapy orders to continue when indicated.
== END 2023-08-28 08:15 | disposition home or self-care (01) ==
LOC: ANHOT 13:30
PROVIDERS: PCP Physician Assistant
DX: M54.50 Low back pain, unspecified (principal); M25.531 Pain in right wrist
CPT/HCPCS: 97014; 97018; 97035; 97110; 97112; 97140; 97162; 97165; 97530; G0283; L3933

== ENCOUNTER 2023-08-31 14:13 | Outpatient (RCR) | payer OTHER, SELFPAY ==
--- NOTE | 2023-08-31 14:51 | OTOPEVAL1 ---
Assessment and note entered by Jonathan Payton, BETTY/Alonzo, CHT Evaluation Information 08/31/23 Diagnosis Right middle finger UCL tear at MCP joint Subjective Information Patient referred to OT for splinting of the middle finger. Order is for RMO. She presents in a wrist brace she wears during the day only. Assessment OT Clinical Summary Patient referred to OT for orthotic fabrication. Today a custom relative motion orthosis was fabricated for the patient's right middle finger to hold the MCP joint in relative extension. Leaving her chart open x2 weeks to allow her to return for splint modifications if needed. Will d/c in 2 weeks if she does not call to schedule. Plan of Care OT Services Indicated Yes Treatment Frequency and 0-1x/week for 2 weeks Duration These treatments will address the objective and functional deficits as defined above. The patient will be advanced safely and appropriately in order for the patient to progress towards his/her prior level of function. Additional exercises will be introduced and as well as a comprehensive home exercise program upon discharge, if needed, ?to ensure carryover of functional gains achieved in the clinic. This treatment plan has been reviewed and agreement upon by the patient.
--- NOTE | 2023-08-31 14:52 | OTOPEVAL1 ---
Assessment and note entered by Jonathan Payton, BETTY/Alonzo, CHT Evaluation Information Assessment Status Evaluation Diagnosis Right middle finger UCL tear at MCP joint Subjective Information Patient referred to OT for splinting of the middle finger. Order is for RMO. She presents in a wrist brace she wears during the day only. Reported Pain Level Pain Score 0: Self Report Assessment OT Clinical Summary Patient referred to OT for orthotic fabrication. Today a custom relative motion orthosis was fabricated for the patient's right middle finger to hold the MCP joint in relative extension. Leaving her chart open x2 weeks to allow her to return for splint modifications if needed. Will D/ C in 2 weeks if she does not call to schedule. Plan of Care OT Services Indicated Yes Treatment Frequency and 0-1x/week for 2 weeks Duration These treatments will address the objective and functional deficits as defined above. The patient will be advanced safely and appropriately in order for the patient to progress towards his/her prior level of function. Additional exercises will be introduced and as well as a comprehensive home exercise program upon discharge, if needed, ?to ensure carryover of functional gains achieved in the clinic. This treatment plan has been reviewed and agreement upon by the patient.
--- NOTE | 2023-09-17 13:11 | OTOPDC ---
Assessment and note entered by Jonathan Payton, OTR/L, CHT OT D/C Notification 09/17/23 OT Clinical Summary A relative motion orthosis was fabricated for this patient on 08/31/23. She has not returned for any splinting needs. Discharging OT at this time. Thank you for this referral.
== END 2023-09-17 14:44 | disposition home or self-care (01) ==
LOC: ANHOT 14:13
PROVIDERS: PCP Physician Assistant
DX: S63.659D Sprain of metacarpophalangeal joint of unspecified finger, subsequent encounter (principal); M65.331 Trigger finger, right middle finger
CPT/HCPCS: 97165; L3933

== ENCOUNTER 2023-10-15 12:43 | Outpatient (CLI) | payer OTHER, SELFPAY ==
[2023-10-15 13:33] LABS: Beta HCG Quantitative < 2.39 mIU/ML
== END 2023-10-15 12:44 | disposition home or self-care (01) ==
LOC: ANHLAB 12:50
PROVIDERS: PCP Physician Assistant; Visit Provider Obstetrics & Gynecology
DX: Z32.01 Encounter for pregnancy test, result positive (principal); Z3A.00 Weeks of gestation of pregnancy not specified
CPT/HCPCS: 36415; 84702

== ENCOUNTER 2023-11-13 10:15 | Outpatient (RCR) | payer OTHER, SELFPAY ==
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
--- NOTE | 2023-10-23 16:03 | OPREHPOC ---
Outpatient Therapy Plan of Care This is a Multidisciplinary Plan of Care that may contain components documented by all disciplines (PT, OT, and ST.) OT Problem 1 OT Problem #1 Knowledge Deficit OT Goal 1 Goal 1. Patient to be independent with instructed materials. Target Visit 6 OT Problem 2 OT Problem #2 Pain OT Goal 1 Goal 1. Patient to report no pain with composite fist or lumbricals. Target Visit 6 OT Problem 3 OT Problem #3 Impaired Strength OT Goal 1 Goal 1. 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 Target Visit 6
--- NOTE | 2023-12-19 09:35 | OTOPDC ---
Assessment and note entered by Jonathan Payton, OTR/L, CHT OT D/C Notification 12/19/23 OT Clinical Summary Patient has not returned for treatment since 11/13/23 At that appointment she was doing very well, having 0/10 pain and tolerating all exercises without difficulty. She was to follow up with MD that next week and call to schedule 1 more appointment (insurance only authorized 1 more). We did not hear from her. Called patient this morning, 12/19/23, who reports her hand is doing way worse and she can't use it . Offered the 1 remaining appointment and she states she is wanting to follow up with MD and possibly get another opinion on her hand. Discharging OT at this time. OT Services Indicated No
== END 2023-12-19 17:02 | disposition home or self-care (01) ==
LOC: ANHOT 10:15
PROVIDERS: PCP Physician Assistant
DX: S63.659D Sprain of metacarpophalangeal joint of unspecified finger, subsequent encounter (principal)
CPT/HCPCS: 97018; 97110; 97165; L3925